=== PATIENT | male | born 1960 | race American Indian/Alaskan Native ===

== ENCOUNTER 2017-04-19 19:26 | Emergency (ER) | payer OTHER ==
[2017-04-19] MEDS ORDERED: CATAPRES PO ONE (20:43)
--- NOTE | 2017-04-20 00:20 | Emergency Department Report ---
ED Rash HPI - HPI Chief Complaint: Wound/Laceration Stated Complaint: HEAD LAC Time Seen by Provider: 04/20/17 00:20 Duration: Today (at 9 AM) Location: Head Suspected Cause: Other (patient reports that he cut himself while shaving his head) Rash Symptoms: No Itching, No Facial Swelling, No Tongue/Oral Swelling, No Breathing Difficulties, No Choking Sensation, No Wheezing/Dyspnea, No Peeling, No Blistering, No Fever, No Lightheaded, No Malaise, No Myalgias Severity: mild (1/10 only with touch) Other History: Patient reports that he cut himself while trying to shave his head. He reports he has a cut at the top of his head. This happened this morning at 9 AM. Tetanus vaccine is up-to-date 2016. Pain is 110 only with touch. Denies any fever or chills. No other complaints. Blood pressure is elevated at 157/104 in triage area the patient was given clonidine 0.1 mg. Asymptomatic with elevated blood pressure. Patient said he doesn't usually take his medication. ED Review of Systems ROS: Stated complaint: HEAD LAC Other details as noted in HPI Comment: All other systems reviewed and negative Constitutional: no symptoms reported Respiratory: no symptoms reported Cardiovascular: denies: chest pain, palpitations, dyspnea on exertion, edema, syncope, paroxysmal nocturnal dyspnea Gastrointestinal: denies: abdominal pain, nausea, vomiting Musculoskeletal: denies: back pain, joint swelling, arthralgia, myalgia Skin: other (cut to scalp) Neurological: denies: headache, weakness, numbness, paresthesias, confusion, abnormal gait, vertigo ED Past Medical Hx - Past Medical History Previous Medical History?: Yes Hx Hypertension: Yes (non-compliant) - Surgical History Past Surgical History?: No - Family History Family history: hypertension - Social History Smoking Status: Never Smoker Substance Use Type: None - Medications Home Medications: Home Medications Medication Instructions Recorded Confirmed Last Taken Type Cephalexin [Keflex] 500 mg PO Q8HR 5 Days #15 cap 04/20/17 Unknown Rx Rash Exam - Exam General: Vital signs noted. No distress. Alert and acting appropriately. This is a 56-year-old male well-nourished well-developed in no acute distress. HEENT: No Periorbital Edema, No Conjuctival Injection, No Chemosis, No Perioral Edema, No Tongue Edema, No Uvular Edema, No Compromised Airway, No Drooling Lungs: Yes Good Air Exchange, No Wheezes, No Ronchi, No Stridor, No Cough, No Labored Respirations, No Retractions, No Use of Accessory Muscles, No Other Abnormal Lung Sounds Heart: Yes Regular (S1-S2, regular rate rhythm ), No Murmur Skin: Yes Tenderness (mid scalp), Yes Other (superficial abrasion noted to mid- scalp area. No signs of infection), No Urticarial Rash, No Maculopapular Rash, No Morbilliform rash, No Bulla(e), No Excoriations, No Weeping, No Erythema, No Edema, No Encrustations Other: Positive: Abdomen Normal (normal exam), Neurologic Normal (normal exam), Musculoskeletal Normal (normal exam) ED Course Vital Signs 04/19/17 04/19/17 04/19/17 20:39 20:46 23:05 Temperature 98 F Pulse Rate 86 86 80 Respiratory 18 Rate Blood Pressure 178/108 178/108 Blood Pressure 157/104 [Right] O2 Sat by Pulse 100 Oximetry Vital Signs 04/19/17 04/19/17 04/19/17 20:39 20:46 23:05 Temperature 98 F Pulse Rate 86 86 80 Respiratory 18 Rate Blood Pressure 178/108 178/108 Blood Pressure 157/104 [Right] O2 Sat by Pulse 100 Oximetry 04/20/17 00:38 Temperature 97.6 F Pulse Rate 68 Respiratory 16 Rate Blood Pressure Blood Pressure 129/89 [Right] O2 Sat by Pulse 100 Oximetry - Reevaluation(s) Reevaluation #1: 04/20/17 00:46 given clonidine 0.1 mg for elevated blood pressure and his blood pressure is now stabilized. Abrasion to scalp cleansed with normal saline and Neosporin ointment placed the site. I instructed patient he needs to follow up with primary care and take his blood pressure medication. ED Medical Decision Making - Medical Decision Making ED course: He reports that he has cut to his scalp from shaving himself this morning. Tetanus vaccine is up-to-date per patient. Patient is 110 only with touch. Patient found to have superficial abrasion to mid scalp area. His blood pressure was also elevated without any symptoms and patient said he has blood pressure medication but he does not always take his medicine. He was given clonidine 0.1 mg by mouth and up and reevaluation of pressure is stable. Abrasion to scalp cleansed with normal saline and Neosporin ointment was applied. Patient discharged home with instructions to take his blood pressure medication as prescribed. I instructed them that if his blood pressure is left untreated he can develop stroke, heart disease, kidney disease and eventually . He voiced understanding. Patient discharged home with prescription for Keflex and to follow up with primary care in 2 days. Critical care attestation.: If time is entered above; I have spent that time in minutes in the direct care of this critically ill patient, excluding procedure time. ED Disposition Clinical Impression: Abrasion, scalp without infection, Elevated blood pressure reading with diagnosis of hypertension Disposition: DC-01 TO HOME OR SELFCARE Is pt being admited?: No Condition: Stable Instructions: Hypertension (ED), How to Take a Blood Pressure (ED), Heart Healthy Diet (ED), Low Sodium Diet (ED), Abrasion (ED) Additional Instructions: Please keep affected area clean and dry Take antibiotic as prescribed Follow-up a few blood pressure and take to primary care visit with you. Take blood pressure medication as prescribed Elevated untreated blood pressure can lead to stroke, heart attack, kidney disease and eventually . Prescriptions: Cephalexin [Keflex] 500 mg PO Q8HR 5 Days #15 cap Referrals: PRIMARY CARE, [Primary Care Provider] - 2-3 Days [facility] [Outside] - 2-3 Days Forms: Work/School Release Form(ED)
[2017-04-20] MEDS ORDERED: TRIPLE ANTIBIOTIC TP ONE (00:21)
[2017-04-20 00:39] VITALS: BP 129/89
== END 2017-04-20 00:59 | disposition home or self-care (01) ==
LOC: ED 19:26
DX: S00.01XA Abrasion of scalp, initial encounter (principal); I10 Essential (primary) hypertension; W45.8XXA Other foreign body or object entering through skin, initial encounter; Y93.89 Activity, other specified; Y92.89 Other specified places as the place of occurrence of the external cause; Y99.8 Other external cause status
CPT/HCPCS: 99283; A6250

== ENCOUNTER 2019-03-02 08:00 | Outpatient (CLI) | payer OTHER ==
--- NOTE | 2019-03-02 09:15 | Cat Scan Report ---
CT ABDOMEN AND PELVIS WITHOUT CONTRAST HISTORY: R36.1 Hematospermia/K43.9 Ventral hernia without obstruction or g COMPARISON: No relevant comparative imaging available. TECHNIQUE: Routine abdominal and pelvic CT exam performed without contrast. Lack of intravenous cont rast limits evaluation of the vascular and solid organs.Note: All CT scans at this location are perfo rmed using CT dose reduction employed for ALARA by means of automated exposure control. CONTRAST: None. FINDINGS: CT ABDOMEN: Lung Bases: Clear. Liver: Normal. Biliary: Normal gallbladder and bile ducts. Spleen: No significant abnormality. Unenlarged. Pancreas: No significant abnormality. Adrenals: No significant abnormality. Kidneys: No significant abnormality. The renal collecting systems and ureters are nondilated. A 2.9 c m left upper pole renal cyst. Lymphatics: No lymphadenopathy. Vasculature: No significant abnormality. Bowel/Peritoneum: Nonobstructive bowel pattern. Diverticulosis without mesocolonic fat stranding. No free air. No free fluid. Normal appendix. Additional findings: A small fat-containing umbilical hernia and an adjacent tiny ventral abdominal w all defect with herniation of a tiny amount of fat through the defect. This defect is slightly to the right of midline and is just superior to the umbilical hernia. CT PELVIC: : Normal urinary bladder and prostate. A small right inguinal hernia containing fat and fluid densi ty. Only one testicle is identified slightly to the right of midline but the scans did not extend ent irely through the scrotum. Osseous Structures: No significant abnormality. Additional Findings: None IMPRESSION: 1. A small fat-containing umbilical hernia and a separate contiguous tiny supraumbilical abdominal wa ll defect with herniation of fat. 2. A small right inguinal hernia with fluid and fat in the hernia sac. 3. No bowel containing hernia. 4. A 2.9 cm left upper pole renal cyst. Signer Name: Anselmo Croft MD Signed: 03/02/2019 9:10 AM Workstation Name: [id number]
== END 2019-03-02 08:01 | disposition home or self-care (01) ==
LOC: CT 08:00
PROVIDERS: ATTEND Internal Medicine
DX: K42.9 Umbilical hernia without obstruction or gangrene (principal); K40.90 Unilateral inguinal hernia, without obstruction or gangrene, not specified as recurrent; N28.1 Cyst of kidney, acquired; K57.30 Diverticulosis of large intestine without perforation or abscess without bleeding
CPT/HCPCS: 74176